=== PATIENT | male | born 1945 | race Caucasian/White ===

== ENCOUNTER → 2019-02-17 | Outpatient (CLI) | payer BC, MEDICARE ==
[~2019-02-17] MED LIST: B CO1TAB14 PO; BUDE10.2 INH; CETI10CA PO; CHOL200024 PO; LACT1CAP37 PO; MULT1TAB60 PO; NIAC500T10 PO; POLY17PO5 PO; PSYL0.5215 PO; THEO400T2 PO
== END | disposition home or self-care (01) ==
LOC: STAR 12:18
PROVIDERS: ATTEND Surgery Vascular Surgery
DX: Z01.818 Encounter for other preprocedural examination (principal); D17.79 Benign lipomatous neoplasm of other sites; R94.31 Abnormal electrocardiogram [ECG] [EKG]
CPT/HCPCS: 71046; 93005

== ENCOUNTER → 2019-10-31 | Outpatient (CLI) | payer BC, MEDICARE ==
[~2019-10-31] MED LIST changes: +CALC625T23 PO; +CARB1TAB20 PO; +NIAC-1 PO; -NIAC500T10 PO; +TRAZ50TA66 PO
== END | disposition home or self-care (01) ==
LOC: RAD 08:31
PROVIDERS: ATTEND Family Medicine
DX: G20 Parkinson's disease (principal); L57.8 Other skin changes due to chronic exposure to nonionizing radiation; G47.09 Other insomnia; Z68.27 Body mass index [BMI] 27.0-27.9, adult; L57.0 Actinic keratosis; R27.0 Ataxia, unspecified; R13.19 Other dysphagia
CPT/HCPCS: 74230